=== PATIENT | female | born 1975 | race Caucasian/White ===

== ENCOUNTER 2020-03-29 06:00 | Inpatient (IN) | payer OTHER ==
[2020-03-29 07:45] VITALS: BMI 29.7
[2020-03-29] MEDS ORDERED: PROPOFOL 20 ML ONE (08:18)
[2020-03-29] MEDS ORDERED: morphine SULFATE/PF 0.5 MG/ML (2cc Syringe - QUVA) ONE (08:18)
[2020-03-29] MEDS ORDERED: SUCCINYLCHOLINE CHLORIDE 200 MG/10 ML SYRINGE ONE (08:18)
[2020-03-29] MEDS ORDERED: CITRIC ACID/SODIUM CITRATE 30 ML UNIT-DOSE CUP PO ONE (08:19)
[2020-03-29] MEDS ORDERED: ELECTROLYTE-148 SOLN 500 ML IV ONE (08:19)
[2020-03-29] MEDS ORDERED: ePHEDrine SULFATE 50 MG/1 ML AMPULE ONE (08:20)
--- NOTE | 2020-03-29 08:24 | HP ---
Past Medical History - Admission Chief Complaint: for repeat c s History of Present Illness: fro repeat c s History Source: Patient Limitations to Obtaining History: No Limitations - Past Medical History MEDICAL ACCOUNTANT: No: Alzheimer's, CVA, Dementia, Migraine, Multiple Sclerosis, Peripheral Neuropathy, Parkinson's, Seizure, Syncope, TIA, Vertigo, Other Cardiovascular: No: AFIB, Aneurysm, Aortic Insufficiency, Aortic Stenosis, CAD, CHF, Deep Vein Thrombosis, HTN, Hyperlipdemia, LA, Mitral Insufficiency, Mitral Stenosis, Murmur, Pulmonary Hypertension, Other Pulmonary: No: Asthma, Bronchitis, Cancer, COPD, O2 Dependent, Pneumonia, Previously Intubated, Pulmonary Embolus, Pulmonary Fibrosis, Sleep Apnea, Other Gastrointestinal: No: Ascites, Cancer, Constipation, Crohn's Disease, Diverticulitis, Diverticulosis, Esophageal Varices, Gastritis, GERD, GI Bleed, Hemorrhoids, Hiatal Hernia, Inflamatory Bowel Disease, Irritable Bowel Disease, Pancreatitis, Peptic Ulcer Disease, Ulcerative Colitis, Other Hepatobiliary: No: Cirrhosis, Cholelithiasis, Cholecystitis, Choledocholithiasis, Hepatitis A, Hepatitis B, Hepatitis C, Other Renal/: No: Renal Failure, Renal Inusuff, BPH, Cancer, Hematuria, Hemodialysis, Neurogenic Bladder, Renal Calculi, UTI, Other Reproductive: No: Ectopic , Endometriosis, Fibroids, PID, Polycystic Ovary Syndrome, Postmenopausal, Other ...: 2 ...Para: 1 ...Term: 1 ...: 0 ...Spon : 0 ...Induced : 0 ...Living Children: 1 ...Multiple Gestation: 0 ... Weeks Gestation by Dates: 39.1 ...EDC by Dates: 04/05/20 Heme/Onc: No: Anemia, B12 Deficiency, Bleeding Disorder, Cancer, Current Chemotherapy, Current Radiation Therapy, Hemochromatosis, Hypercoaguable State, Myeloproliferative Synd, Sickle Cell Disease, Sickle Cell Trait, Thrombocytopenia, Other Infectious Disease: No: AIDS, C-Diff, Herpes Zoster, HIV, MRSA, STD's, Tuberculosis, VREF, Other Psych: No: Addictions, Anxiety, Bipolar, Depression, Panic, Psychosis, Schizophrenia, Other Musculoskeletal: No: Bursitis, Chronic low back pain, Hemiparesis, Hemiplegia, Osteoarthritis, Paraplegia, Other Rheumatology: No: Fibromyalgia, Gout, Lupus, Rheumatoid Arthritis, Sarcoidosis, Vasculitis, Other ENT: No: Allergic Rhinitis, Sinusitis, Other Endocrine: No: Larimer's Disease, Blaise's Disease, Diabetes Insipidus, Diabetes Mellitus, Hyperparathyroidism, Hyperthyroidism, Hypothyroidism, Osteopenia, SIADH, Other Dermatology: No: Basal Cell, Cellulitis, Eczema, Melanoma, Psoriasis, Squamous Cell, Other - Past Surgical History Past Surgical History: Yes: Hx Myomectomy: No Hx Transabdominal Cerclage: No - Advance Directives Advance Directives: Yes: Living Will - Smoking History Smoking history: Never smoked - Alcohol/Substance Use Hx Alcohol Use: No History of Substance Use: reports: None - Social History Usual Living Arrangement: Yes: With Significant Other Do you think of yourself as: Straight/Heterosexual ADL: Independent History of Recent Travel: No Home Medications - Allergies Allergies/Adverse Reactions: Allergies Allergy/AdvReac Type Severity Reaction Status Date / Time No Known Allergies Allergy Verified 03/29/20 07:27 - Home Medications Home Medications: Ambulatory Orders Vitamins (Sjr) - 1 tab PO DAILY 03/29/20 Family Medical History Family History: Denies Review of Systems - Review of Systems Constitutional: reports: No Symptoms Eyes: reports: No Symptoms HENT: reports: No Symptoms Neck: reports: No Symptoms Cardiovascular: reports: No Symptoms Respiratory: reports: No Symptoms Gastrointestinal: reports: No Symptoms Genitourinary: reports: No Symptoms Breasts: reports: No Symptoms Reported Musculoskeletal: reports: No Symptoms Integumentary: reports: No Symptoms Neurological: reports: No Symptoms Endocrine: reports: No Symptoms Hematology/Lymphatic: reports: No Symptoms Psychiatric: reports: No Symptoms Physical Exam - Maternity Vital Signs: Vital Signs Temperature 98.7 F 03/29/20 07:46 Pulse Rate 92 H 03/29/20 07:46 Respiratory Rate 17 03/29/20 07:46 Blood Pressure 128/66 03/29/20 07:46 O2 Sat by Pulse Oximetry (%) Constitutional: Yes: Well Nourished, No Distress, Calm Eyes: Yes: WNL, Conjunctiva Clear, EOM Intact HENT: Yes: WNL, Atraumatic, Normocephalic Neck: Yes: WNL, Supple, Trachea Midline Cardiovascular: Yes: WNL, Regular Rate and Rhythm Lungs: Clear to auscultation Breast(s): Yes: WNL - Abdominal Exam/OB Fundal Height: 42 Number of Fetuses: Single Presentation: Vertex Contractions: Yes Regularity: Irregular Intensity: Mild Monitor Mode: External Heart Rate (range): 150 Heart Rate Location: [facility] Category: I Accelerations: Uniform Decelerations: None - Vaginal Exam/OB Vaginal Bleeding: No Speculum Exam: No Dilatation (cm): 1 Amniotic Membrane Status: Intact Meconium: Light Presentation: Vertex/Position Station: -3 - Physical Exam Musculoskeletal: Yes: WNL Extremities: Yes: WNL Edema: Yes Integumentary: Yes: WNL Deep Tendon Reflex Grade: Normal +2 ...Motor Strength: WNL Psychiatric: Yes: WNL, Alert, Oriented Hemorrhage Risk Assessment - Risk Factors Medium Risk Factors: Yes: Prior , uterine surgery,or multiple laparotomies High Risk Factors: Yes: None Risk Score: 1 Risk Level: Medium Risk Assessment/Plan for repeat lt c s
[2020-03-29] MEDS ORDERED: ELECTROLYTE-148 SOLN 1,000 ML IV SCH (08:30)
[2020-03-29] MEDS ORDERED: ceFAZolin SODIUM 1 GM VIAL ONE (08:42)
[2020-03-29] MEDS ORDERED: OXYTOCIN 10 UNITS/ML VIAL ONE (08:53)
[2020-03-29] MEDS ORDERED: morphine SULFATE/PF 0.5 MG/ML (2cc Syringe - QUVA) SPIN ONE (10:01)
[2020-03-29] MEDS ORDERED: ONDANSETRON 4 MG/2 ML VIAL IVPUSH PRN (10:01)
[2020-03-29] MEDS ORDERED: METHYLERGONOVINE MALEATE 0.2 MG/1 ML AMP IM PRN (10:04)
[2020-03-29] MEDS ORDERED: oxyCODONE HCL 5 MG TABLET PO PRN ×2 (10:04)
[2020-03-29] MEDS ORDERED: SENNOSIDES/DOCUSATE COMBO (SENNA PLUS) TABLET (UD) PO PRN (10:04)
--- NOTE | 2020-03-29 10:04 | OP ---
Operative Note - Note: Operative Date: 03/29/20 Pre-Operative Diagnosis: repeat lt c s Operation: repeat lt c s Post-Operative Diagnosis: Same as Pre-op Surgeon: Kenneth Pastor Bingo Usher: Shaji Nagel Anesthesiologist/PHOTOGRAPHIC DOUBLE: Silvia Plata MD Anesthesia: Spinal Estimated Blood Loss (mls): 800 (no complications ) Operative Report Dictated: Yes
[2020-03-29] MEDS ORDERED: OXYTOCIN 20 UNITS in 0.9% NS 20 UNIT/1,000 ML INFUS.BAG IV SCH (10:15)
--- NOTE | 2020-03-29 10:22 | CONSULT ---
- Maternal History Mother's Age: 42 yo Status: Mother's Blood Type: A positive HBSAG: Negative Date: 09/19/19 RPR: Negative Date: 09/19/19 Group B Strep: Unknown GBS Treated in Labor: No HIV: Negative [place] Data - Admission Date of Admission: 03/29/20 Admission Time: 06:00 Date of Delivery: 03/29/20 Time of Delivery: 08:54 Wks Gestation by Dates: 39.1 Infant Gender: Male Type of Delivery: Repeat C/S Reason for C Section: Repeat C section Score @1 Minute: 8 score @ 5 Minutes: 9 Weight: 4.819 kg Length: 55.88 cm Level 2, History and Physical History: Full term male born via repeat scheduled Csection to a 42 yo mother with negative labs( GBS unknown), ROM at delivery . Baby was vigorous at , with good tone , spontaneous cry, good respiratory efforts, cyanosis. Baby was dried and stimulated, was suctioned using bulb syringe and deep suctioning. Apgars 8 and 9 at 1 and 5 min of life (off for color). - [place] Weight: 4.819 kg Length: 55.88 cm Vital Signs: Vital Signs Temperature 37.1 C 03/29/20 07:46 Pulse Rate 92 H 03/29/20 07:46 Respiratory Rate 17 03/29/20 07:46 Blood Pressure 128/66 03/29/20 07:46 O2 Sat by Pulse Oximetry (%) General Appearance: Yes: No Abnormalities, Well flexed, Full ROM, Spontaneous movements Skin: Yes: No Abnormalities, Other (pustular melanosis) Head: Yes: No Abnormalities Eyes: Yes: No Abnormalities Ears: Yes: No Abnormalities Nose: Yes: No Abnormalities Mouth: Yes: No Abnormalities Chest: Yes: No Abnormalities Lungs/Respiratory: Yes: No Abnormalities Cardiac: Yes: No Abnormalities Abdomen: Yes: No Abnormalities, Umb Ves, 2 artery 1 vein Gastrointestinal: Yes: No Abnormalities Genitalia: No Abnormalities Anus: Yes: No Abnormalities Extremities: Yes: No Abnormalities, 10 Fingers, 10 Toes Spine: Yes: No Abnormalities Reflexes: [place]: Present Neuro: Yes: No Abnormalities, Alert, Active Cry: Yes: No Abnormalities, Strong Problem List - Problems (1) LGA (large for gestational age) fetus Code(s): JTX9129 - Assessment/Plan LGA, full term male born via repeat scheduled Csection to a 42 yo mother with negative labs( GBS unknown), ROM at delivery . Baby was vigorous at , with good tone , spontaneous cry, good respiratory efforts, cyanosis. Baby was dried and stimulated, was suctioned using bulb syringe and deep suctioning. Apgars 8 and 9 at 1 and 5 min of life (off for color). Baby is LGA: monitor BGM's as per protocol in [facility] baby nursery.
[2020-03-29] MEDS: IBUPROFEN 800 MG/8 ML IJ IVPB PRN (11:15)
[2020-03-29] MEDS ORDERED: IBUPROFEN 800 MG/8 ML IJ IVPB ONE (11:15)
[2020-03-29] MEDS ORDERED: OXYTOCIN 20 UNITS in 0.9% NS 20 UNIT/1,000 ML INFUS.BAG IV ONE (12:03)
[2020-03-30] MEDS: IBUPROFEN 800 MG/8 ML IJ IVPB PRN (00:48)
--- NOTE | 2020-03-30 08:09 | PN ---
Progress Note (short form) - Note Progress Note: Anesthesia Post op/Pain Pt seen and examined S:Alert and awake comfortable O: Vital Signs Temperature 97.7 F 03/30/20 06:00 Pulse Rate 62 03/30/20 06:00 Respiratory Rate 03/30/20 06:00 Blood Pressure 90/62 03/30/20 06:00 O2 Sat by Pulse Oximetry (%) 98 03/29/20 11:20 A/P: Current Active Problems LGA (large for gestational age) fetus (Acute) s/p c section Doing well post op Continue current care Femi Friedman MD
[2020-03-30 08:45] LABS: BASO % 0.5 % (0-2.0); EOS % 1.6 % (0-4.5); HEMOGLOBIN 9.4 GM/dL (10.7-15.3); LYMPH % 8.4 % (8-40); MCH 27.6 pg (25.7-33.7); MCHC 33.5 g/dl (32.0-36.0); MEAN CELL VOLUME 82.5 fl (80-96); MEAN PLT VOLUME 8.5 fl (7.5-11.1); MONO % 6.4 % (3.8-10.2); NEUT % 83.1 % (42.8-82.8); PLATELET COUNT 164 K/MM3 (134-434); RDW 15.3 % (11.6-15.6); WHITE BLOOD COUNT 9.9 K/mm3 (4.0-10.0)
[2020-03-30] MEDS: ACETAMINOPHEN 325 MG TABLET (FP) PO PRN ×3 (09:45→23:37)
[2020-03-30] MEDS: IBUPROFEN 600 MG TABLET (FP) PO PRN ×3 (09:45→23:37)
[2020-03-30] MEDS: PRENATAL VITAMINS W/ FOLIC ACID TABLET (FP) PO SCH (09:46)
[2020-03-30] MEDS ORDERED: BISACODYL 10 MG SUPP.RECT RC PRN (10:04)
--- NOTE | 2020-03-30 22:44 | PN ---
Post Progress Note Post Day: 1 Type of Delivery: Repeat C/S Vital Signs: Vital Signs Temperature 98.7 F 03/30/20 21:35 Pulse Rate 99 H 03/30/20 21:35 Respiratory Rate 18 03/30/20 21:35 Blood Pressure 109/65 03/30/20 21:35 O2 Sat by Pulse Oximetry (%) 99 03/30/20 21:35 Breast Exam: Yes: Soft Uterus: Yes: Fundus Firm, Fundus below umbilicus, Non-tender Incision: Yes: Dressing dry and intact, Sutures intact Abdomen/GI: Yes: Abdomen soft, Passing flatus, Tolerating PO Lochia: Yes: Serosa Lochia, amount: Small Extremities: Yes: Calves non-tender Perineum: Yes: Intact Activity: Ambulating (dc pt home tomorrow ) - Labs Labs: CBC WBC 9.9 K/mm3 (4.0-10.0) 03/30/20 07:40 RBC 3.40 M/mm3 (3.60-5.2) L 03/30/20 07:40 Hgb 9.4 GM/dL (10.7-15.3) L 03/30/20 07:40 Hct 28.0 % (32.4-45.2) L 03/30/20 07:40 MCV 82.5 fl (80-96) 03/30/20 07:40 MCH 27.6 pg (25.7-33.7) 03/30/20 07:40 MCHC 33.5 g/dl (32.0-36.0) 03/30/20 07:40 RDW 15.3 % (11.6-15.6) 03/30/20 07:40 Plt Count 164 K/MM3 (134-434) 03/30/20 07:40 MPV 8.5 fl (7.5-11.1) 03/30/20 07:40 Absolute Neuts (auto) 8.2 K/mm3 (1.5-8.0) H 03/30/20 07:40 Neutrophils % 83.1 % (42.8-82.8) H 03/30/20 07:40 Lymphocytes % 8.4 % (8-40) D 03/30/20 07:40 Monocytes % 6.4 % (3.8-10.2) 03/30/20 07:40 Eosinophils % 1.6 % (0-4.5) D 03/30/20 07:40 Basophils % 0.5 % (0-2.0) 03/30/20 07:40 Nucleated RBC % 0 % (0-0) 03/30/20 07:40
--- NOTE | 2020-03-30 22:45 | DS ---
Physical Exam-HEAD WAITER/WAITRESS Vital Signs: Vital Signs Temperature 98.7 F 03/30/20 21:35 Pulse Rate 99 H 03/30/20 21:35 Respiratory Rate 18 03/30/20 21:35 Blood Pressure 109/65 03/30/20 21:35 O2 Sat by Pulse Oximetry (%) 99 03/30/20 21:35 Constitutional: Yes: Well Nourished, No Distress, Calm Eyes: Yes: WNL, Conjunctiva Clear, EOM Intact HENT: Yes: WNL, Atraumatic, Normocephalic Neck: Yes: WNL, Supple, Trachea Midline Cardiovascular: Yes: WNL, Regular Rate and Rhythm Respiratory: Yes: WNL, Regular, CTA Bilaterally Gastrointestinal: Yes: WNL, Normal Bowel Sounds, Soft ...Rectal Exam: Yes: WNL Renal/: Yes: WNL Pelvis: Yes: WNL External Genitalia: Yes: Normal Internal Exam Deferred: Yes Vaginal Exam: Yes: Normal Cervix: Yes: Normal Uterus: Yes: Normal Adnexa: Normal: Bilateral ....Post : Yes: Uterus firm, Uterus non-tender Breast(s): Yes: WNL Musculoskeletal: Yes: WNL Extremities: Yes: WNL Edema: Yes Integumentary: Yes: WNL Wound/Incision: Yes: Clean/Dry, Well Approximated Neurological: Yes: WNL, Alert, Oriented ...Motor Strength: WNL Psychiatric: Yes: WNL, Alert, Oriented Labs: CBC, BMP 03/30/20 07:40 Delivery - Delivery Section: Repeat Type of Anesthesia: Spinal EBL (cc): 800 Delivery, Single - Stages of Labor Date of Delivery: 03/29/20 Time of Delivery: 08:54 Time Placenta Delivered: 08:56 - Condition of Print Washer/Photocopying Machine Operator Present: Yes Name: Elisa [place] Infant Gender: Male Weight: 4.819 kg Position: Right, OA Total Hours ROM (Hrs/Mins): 0Hrs/3MIns - 1 Minute Total Score: 8 5 Minutes Total Score: 9 - Feeding Plan Initial Plan: Exclusive throughout hospitalization Discharge Summary Problems reviewed: Yes Reason For Visit: SCHEDULED Current Active Problems LGA (large for gestational age) fetus (Acute) Procedures: Principal: repeat lt c s Other Procedures: none Hospital Course: uneventful Health Concerns: none Condition: Good - Instructions Referrals: Manav Venegas MD [Primary Care Provider] - Disposition: HOME - Home Medications Comprehensive Discharge Medication List: Ambulatory Orders Vitamins (Sjr) - 1 tab PO DAILY 03/29/20 Prescription Drug Monitoring Program (I-STOP) results: I-STOP reviewed and no issues identified
[2020-03-30] MEDS: SIMETHICONE 80 MG TAB.CHEW (FP) PO PRN (23:37)
[2020-03-31] MEDS: SIMETHICONE 80 MG TAB.CHEW (FP) PO PRN ×2 (02:39→09:39)
[2020-03-31] MEDS: ACETAMINOPHEN 325 MG TABLET (FP) PO PRN (09:39)
[2020-03-31] MEDS: IBUPROFEN 600 MG TABLET (FP) PO PRN (09:39)
[2020-03-31] MEDS: PRENATAL VITAMINS W/ FOLIC ACID TABLET (FP) PO SCH (09:39)
[2020-03-31 10:09] VITALS: BP 95/60; PULSE 100; TEMP 97.8
--- NOTE | 2020-04-01 16:47 | OP ---
DATE OF OPERATION: 03/29/2020 PREOPERATIVE DIAGNOSIS: Repeat low transverse section. POSTOPERATIVE DIAGNOSIS: Repeat low transverse section and macrosomia. PROCEDURE: Repeat low transverse section. SURGEON: Kenneth Glover MD RISK OFFICER: VAIBHAV Olson ANESTHESIOLOGIST: Silvia Plata MD ANESTHESIA: Spinal. INDICATION: This is a 44-year-old female patient with previous history of low transverse section, currently 39 weeks' , is taken to the OR for a repeat low transverse section. Patient was suspected to be macrosomia, but patient is not diabetic at all. However, patient in no pain, so patient was taken to the OR for repeat low transverse section at 39 weeks. DESCRIPTION OF PROCEDURE: So, patient was placed on the operating table in supine position after spinal anesthesia was obtained. The patient's abdomen and pelvis were prepped and draped in the usual sterile manner. Pfannenstiel incision was made. Incision was made through the skin and subcutaneous tissue until the fascia was nicked in the midline. The fascia was extended bilaterally. Intraperitoneal cavity was entered. Bladder flap was not created. Low transverse segment was entered. Baby delivered from LOT position, and baby was handed over to hotel general manager after umbilical cord doubly clamped and cut. No cord blood gas was obtained. Placenta was removed. Uterus was closed in single layer. Good hemostasis. Because of macrosomia, uterus was slightly enlarged, so Methergine was given to shrink the bleeding. Otherwise, good hemostasis. Both the gutters were cleaned. Both ovaries and fallopian tubes were within normal limits. Patient tolerated the procedure well. Peritoneum was closed. Fascia was closed. Skin was closed. Transferred to recovery room in stable condition. KENNETH GLOVER MD [id number]
--- NOTE | 2020-04-06 18:46 | PATH ---
Surgical Pathology Report Patient Name: DANITZA TSAI [facility]. Rec. #: [id number] /Age/Gender: 1975 (Age: 44) / F Account: [id number] Location: [facility] OBS/BORING MACHINE OPERATOR Taken: 03/29/2020 Received: 03/30/2020 Reported: 04/06/2020 Physicians: Kenneth Pastor MD Specimen(s) Received PLACENTA Clinical History , 39 weeks Final Diagnosis PLACENTA, SECTION: 788 G THIRD TRIMESTER PLACENTA WITH TRIVASCULAR UMBILICAL CORD AND UNREMARKABLE PLACENTAL MEMBRANES. Electronically Signed Cherise Jimenez M.D. Gross Description The specimen is received fresh labeled placenta and is a 788 gram, 21.5 x 18.5 x 3.7 cm. placenta with attached membranes and umbilical cord. The attached membranes are linda, thick, cloudy and insert marginally. The umbilical cord measures 35 cm. in length and averages 1.3 cm. in diameter. The cord inserts eccentrically, 4.5 cm. to the nearest margin. No true knots or strictures are identified. Cut surface of the umbilical cord reveals 3 vessels. The surface is white-blue with minimal fibrin deposition and appropriate caliber vessels. The maternal surface is red-brown with focal defects. Sectioning reveals red-brown, spongy parenchyma. No lesions are identified. Business Planning Manager sections are submitted in three cassettes as follows: 1- membrane rolls and umbilical cord; 2-3- full thickness sections of placenta. /04/04/2020 [facility]04/04/2020
== END 2020-03-31 14:12 | disposition home or self-care (01) | DRG 540 ==
LOC: JLDR 06:00 → J3W 12:42
PROVIDERS: ADMIT Obstetrics & Gynecology; ATTEND Obstetrics & Gynecology
PROC: 10D00Z1 Extraction of Products of Conception, Low, Open Approach (ICD-10-PCS; principal; 2020-03-29)
DX: O82 Encounter for cesarean delivery without indication (principal); O36.63X0 Maternal care for excessive fetal growth, third trimester, not applicable or unspecified; O34.211 Maternal care for low transverse scar from previous cesarean delivery; Z3A.39 39 weeks gestation of pregnancy; Z37.0 Single live birth
CPT/HCPCS: 36415; 85025; 88307-TC